=== PATIENT | female | born 1950 | race African-American/Black ===

== ENCOUNTER 2017-06-22 10:13 | Emergency (ER) | payer MEDICARE, MEDICAID ==
[~2017-06-22] VITALS: Ht 160 cm; Wt 91.0 kg
[~2017-06-22 10:13] MED LIST: ATOR10TA PO; CARI350T PO; GABA-533 PO; HYDR-519 PO; IBUP-2030 PO; TRAM50TA PO
[2017-06-22] MEDS ORDERED: HYDROCODONE/ACETAMINOPHEN 5/325MG TABLET PO ONE (11:15)
[2017-06-22 12:22] VITALS: BP 139/58
== END 2017-06-22 12:26 | disposition home or self-care (01) ==
LOC: ER 10:32
DX: M54.5 Low back pain (principal); G89.29 Other chronic pain; I10 Essential (primary) hypertension; E78.00 Pure hypercholesterolemia, unspecified; F17.200 Nicotine dependence, unspecified, uncomplicated
CPT/HCPCS: 99283

== ENCOUNTER 2021-06-23 12:03 | Emergency (ER) | payer MEDICARE, MEDICAID ==
[~2021-06-23] VITALS: Ht 165.1 cm; Wt 73.0 kg
[~2021-06-23 12:03] MED LIST changes: -CARI350T PO; +CARI350T28 PO
[2021-06-23] MEDS ORDERED: KETOROLAC 60MG/2ML VIAL IM ONE (13:00)
[2021-06-23] MEDS ORDERED: METHOCARBAMOL 500MG TABLET PO ONE (13:00)
[2021-06-23] MEDS ORDERED: LIDOCAINE 5% PATCH TOP SCH (13:00)
[2021-06-23] MEDS ORDERED: HYDROCODONE/ACETAMINOPHEN 10/325MG TABLET PO ONE (13:00)
[2021-06-23 13:50] VITALS: BP 135/64
[2021-06-23] MEDS ORDERED: LIDO1ADH23 TP (16:06)
[2021-06-23] MEDS ORDERED: IBUP-2028 MT (16:06)
[2021-06-23] MEDS ORDERED: METH-653 MT (16:08)
== END 2021-06-23 16:36 | disposition home or self-care (01) ==
LOC: ER 12:03
DX: M54.41 Lumbago with sciatica, right side (principal)
CPT/HCPCS: 93971; 96372; 99284; J1885

== ENCOUNTER 2023-12-03 12:24 | Inpatient (IN) | payer MEDICARE, MEDICAID ==
[~2023-12-03] VITALS: Ht 170.2 cm; Wt 77.1 kg
[~2023-12-03 12:24] MED LIST changes: +ALBU18HF2 IH; -GABA-533 PO; +GABA-534 PO; +IBUP-2028 MT; +IPRA3AMP9 HHN; +LEVO-65 MT; +LIDO1ADH23 TP; +METH-653 MT; +METH4TAB95 MT
[2023-12-03 13:00] LABS: BASOPHILS % 0.4 % (0.0-2.0); EOSINOPHILS % 4.8 % (0.0-5.0); HEMATOCRIT. 33.7 % (36.0-48.0); LYMPHOCYTES % 35.2 % (20.0-50.0); MEAN CORPUSCULAR HEMOGLOBIN 28.4 pg (28.0-32.0); MEAN CORPUSCULAR HGB CONC 32.5 g/dL (31.0-37.0); MEAN CORPUSCULAR VOLUME 87.3 fL (81.0-99.0); MEAN PLATELET VOLUME 7.9 fl (7.4-10.4); NEUTROPHILS % 53.6 % (40.0-76.0); PLATELET 251 x1000/uL (130-400); RED BLOOD CELL COUNT 3.86 mill/uL (4.2-5.4); RED CELL DISTRIBUTION WIDTH 17.3 % (11.6-14.6); WHITE BLOOD COUNT 10.6 x1000/uL (4.5-11.0)
[2023-12-03 13:09] LABS: CHLORIDE 102 mEq/L (98-107); POTASSIUM 3.3 mEq/L (3.5-5.1); SODIUM 141 mEq/L (136-145)
[2023-12-03 13:10] LABS: CALCIUM 9.5 mg/dL (8.7-10.4); CARBON DIOXIDE 34 mEq/L (21-32)
[2023-12-03 13:15] LABS: GLUCOSE 133 mg/dL (70-105); UREA NITROGEN BLOOD 16 mg/dL (9-23)
[2023-12-03 13:17] LABS: ALANINE AMINOTRANSFERASE 15 IU/L (10-49); ALBUMIN 4.5 g/dL (3.2-4.8); ASPARTATE AMINOTRANSFERASE 23 IU/L (<34); BILIRUBIN TOTAL 0.3 mg/dL (0.1-1.0); PROTEIN TOTAL 7.3 g/dL (6.0-8.3)
[2023-12-03 13:24] LABS: BILIRUBIN DIRECT < 0.1 mg/dL (<=3.0); TROPONIN I HIGH SENSITIVITY < 4 ng/L (3.0-34)
[2023-12-03] MEDS: POTASSIUM CHLORIDE 20MEQ/PACKET PO ONE (14:05)
[2023-12-03] MEDS: MORPHINE SULFATE 4 MG/ML INJ (FOR IV/IM USE) IV ONE (14:41)
[2023-12-03] MEDS ORDERED: ACETAMINOPHEN 325MG TABLET PO PRN (16:45)
[2023-12-03] MEDS ORDERED: GUAIFENESIN 200MG/10ML SUGAR FREE UDC PO PRN (16:45)
[2023-12-03] MEDS ORDERED: ONDANSETRON HCL 4MG/2ML INJ IV PRN (16:45)
[2023-12-03] MEDS ORDERED: HYDRALAZINE 20MG/ML VIAL IV PRN (16:45)
[2023-12-03] MEDS ORDERED: DEXTROSE 50% WATER 50ML SYRINGE IV PRN (16:45)
[2023-12-03] MEDS ORDERED: NALOXONE HCL 0.4MG/ML VIAL IV PRN (17:00)
[2023-12-03] MEDS: INSULIN LISPRO 100 UNITS/ML SUBCUT SCH (17:15)
[2023-12-03] MEDS: FUROSEMIDE 40MG/4ML VIAL IV SCH (17:40)
[2023-12-03] MEDS: BLOOD SUGAR DIAGNOSTIC STRIP TEST SCH (17:41)
[2023-12-03] MEDS: HYDROCODONE/ACETAMINOPHEN 5/325MG TABLET PO PRN (17:47)
[2023-12-03 18:18] LABS: IRON 71 ug/dL (50-170)
[2023-12-03 18:20] LABS: PHOSPHORUS 2.8 mg/dL (2.5-4.9)
[2023-12-03 18:21] LABS: TOTAL IRON BINDING CAPACITY 344 ug/dl (250-425)
[2023-12-03 18:31] LABS: FERRITIN 52 ng/mL (10-291); VITAMIN B12 SERUM 761 pg/mL (211-911)
[2023-12-03] MEDS: KETOROLAC 15MG/ML VIAL IV NR (20:59)
[2023-12-03] MEDS: CYCLOBENZAPRINE 10MG TABLET PO SCH (22:57)
[2023-12-04] VITALS (8 sets, daily range): BP systolic 100–133; BP diastolic 40–83; PULSE 61–86; RESP 16–20; TEMP 36.22512–36.78072; O2SAT 94–100
[2023-12-04 00:02] LABS: CREATINE KINASE MB FRACTION 4.1 ng/mL (0.5-3.6)
[2023-12-04 00:03] LABS: CREATINE KINASE 373 IU/L (34-145)
[2023-12-04 00:32] LABS: TROPONIN I HIGH SENSITIVITY < 4 ng/L (3.0-34)
[2023-12-04 06:04] LABS: BASOPHILS % 0.3 % (0.0-2.0); EOSINOPHILS % 5.5 % (0.0-5.0); HEMATOCRIT. 34.6 % (36.0-48.0); HEMOGLOBIN. 11.1 g/dL (12.0-16.0); LYMPHOCYTES % 34.6 % (20.0-50.0); MEAN CORPUSCULAR VOLUME 87.8 fL (81.0-99.0); MEAN PLATELET VOLUME 8.3 fl (7.4-10.4); MONOCYTES % 6.2 % (2.0-8.0); NEUTROPHILS % 53.4 % (40.0-76.0); PLATELET 248 x1000/uL (130-400); RED BLOOD CELL COUNT 3.95 mill/uL (4.2-5.4); RED CELL DISTRIBUTION WIDTH 17.1 % (11.6-14.6); WHITE BLOOD COUNT 10.3 x1000/uL (4.5-11.0)
[2023-12-04 06:08] LABS: CHLORIDE 101 mEq/L (98-107); POTASSIUM 3.7 mEq/L (3.5-5.1); SODIUM 141 mEq/L (136-145)
[2023-12-04 06:09] LABS: CARBON DIOXIDE 35 mEq/L (21-32)
[2023-12-04 06:10] LABS: CALCIUM 9.5 mg/dL (8.7-10.4)
[2023-12-04 06:12] LABS: CREATINE KINASE MB FRACTION 3.6 ng/mL (0.5-3.6); TROPONIN I HIGH SENSITIVITY 4 ng/L (3.0-34)
[2023-12-04 06:14] LABS: CREATINE KINASE 370 IU/L (34-145); GLUCOSE 107 mg/dL (70-105); UREA NITROGEN BLOOD 18 mg/dL (9-23)
[2023-12-04 06:18] LABS: THYROID STIMULATING HORMONE 1.42 uIU/mL (0.55-4.78)
[2023-12-04] MEDS: IPRATROPIUM/ALBUTEROL 0.5-3(2.5)MG/3ML NEB HHN PRN (16:29)
[2023-12-04 16:46] LABS: CREATINE KINASE MB FRACTION 4.2 ng/mL (0.5-3.6)
[2023-12-04 16:47] LABS: CREATINE KINASE 402 IU/L (34-145)
[2023-12-04 17:10] LABS: TROPONIN I HIGH SENSITIVITY < 4 ng/L (3.0-34)
[2023-12-04] MEDS: BUMETANIDE 1MG TABLET PO SCH (21:00)
[2023-12-04] MEDS: ATORVASTATIN CALCIUM 10MG TABLET PO SCH (23:31)
[2023-12-04] MEDS: ACETAMINOPHEN 325MG TABLET PO PRN (23:31)
[2023-12-05] VITALS: BP 106/40; PULSE 74; TEMP 36.72516; O2SAT 96
[2023-12-05 01:49] LABS: CREATINE KINASE 368 IU/L (34-145); CREATINE KINASE MB FRACTION 2.9 ng/mL (0.5-3.6)
[2023-12-05 01:53] LABS: TROPONIN I HIGH SENSITIVITY < 4 ng/L (3.0-34)
[2023-12-05 04:00] VITALS: BP 123/52; PULSE 65; RESP 20; TEMP 36.33624; O2SAT 95
[2023-12-05 08:00] VITALS: BP 133/69; PULSE 72; RESP 18; TEMP 36.3918; O2SAT 96
[2023-12-05 08:13] LABS: CREATINE KINASE MB FRACTION 2.5 ng/mL (0.5-3.6)
[2023-12-05 08:14] LABS: TROPONIN I HIGH SENSITIVITY 4 ng/L (3.0-34)
[2023-12-05 08:15] LABS: CREATINE KINASE 344 IU/L (34-145)
[2023-12-05] MEDS ORDERED: IPRATROPIUM/ALBUTEROL 0.5-3(2.5)MG/3ML NEB HHN PRN (09:00)
[2023-12-05] MEDS ORDERED: ENOXAPARIN 80MG/0.8ML SYR SUBCUT NR (10:15)
[2023-12-05] MEDS ORDERED: OXYC-582 PO (10:19)
[2023-12-05] MEDS ORDERED: OMEP40CA20 PO (10:19)
[2023-12-05] MEDS ORDERED: GABA-290 (10:19)
[2023-12-05] MEDS ORDERED: ACET325T52 PO (10:19)
[2023-12-05] MEDS ORDERED: FAMO20TA8 PO (10:19)
[2023-12-05] MEDS ORDERED: ALEN70TA79 PO (10:19)
[2023-12-05] MEDS ORDERED: ALBU18HF2 PO (10:19)
[2023-12-05] MEDS ORDERED: DICL100G58 TP (10:19)
[2023-12-05] MEDS ORDERED: CALC-26 PO (10:19)
[2023-12-05] MEDS ORDERED: FURO80TA3 PO (10:19)
[2023-12-05] MEDS ORDERED: BUME2TAB7 PO (10:19)
[2023-12-05] MEDS: ENOXAPARIN 40MG/0.4ML SYR SUBCUT SCH (10:37)
[2023-12-05 11:41] LABS: HEMOGLOBIN. 11.1 g/dL (12.0-16.0); MEAN CORPUSCULAR HEMOGLOBIN 28.6 pg (28.0-32.0); MEAN CORPUSCULAR HGB CONC 32.7 g/dL (31.0-37.0); MEAN CORPUSCULAR VOLUME 87.5 fL (81.0-99.0); PLATELET 254 x1000/uL (130-400); RED BLOOD CELL COUNT 3.89 mill/uL (4.2-5.4); RED CELL DISTRIBUTION WIDTH 17.5 % (11.6-14.6); WHITE BLOOD COUNT 8.9 x1000/uL (4.5-11.0)
[2023-12-05 11:42] LABS: DIFFERENTIAL COMMENT 1
[2023-12-05 11:48] LABS: INR 0.9; PROTHROMBIN TIME 10.3 sec (9.6-11.0)
[2023-12-05 11:52] LABS: CHLORIDE 101 mEq/L (98-107); POTASSIUM 3.5 mEq/L (3.5-5.1); SODIUM 141 mEq/L (136-145)
[2023-12-05 11:53] LABS: CALCIUM 9.6 mg/dL (8.7-10.4); CARBON DIOXIDE 34 mEq/L (21-32)
[2023-12-05 11:58] LABS: CREATININE 0.8 mg/dL (0.6-1.0); GLUCOSE 129 mg/dL (70-105); UREA NITROGEN BLOOD 14 mg/dL (9-23)
[2023-12-05 12:00] VITALS: BP 117/58; PULSE 68; RESP 18; TEMP 36.114; O2SAT 68
[2023-12-05 12:39] LABS: ANISOCYTOSIS 1+; PLATELET ESTIMATE NORMAL
[2023-12-05 16:00] VITALS: BP 119/46; PULSE 73; RESP 18; TEMP 36.55848; O2SAT 73
[2023-12-05 20:00] VITALS: BP 123/45; PULSE 85; RESP 18; TEMP 36.28068; O2SAT 98
[2023-12-06] VITALS: BP 111/39; PULSE 75; RESP 19; TEMP 36.3918; O2SAT 99
[2023-12-06 04:00] VITALS: BP 106/47; PULSE 80; RESP 18; TEMP 36.3918; O2SAT 98
[2023-12-06 06:42] LABS: CALCIUM 9.2 mg/dL (8.7-10.4); CHLORIDE 102 mEq/L (98-107); POTASSIUM 3.6 mEq/L (3.5-5.1); SODIUM 139 mEq/L (136-145)
[2023-12-06 06:43] LABS: CARBON DIOXIDE 32 mEq/L (21-32)
[2023-12-06 06:48] LABS: CREATININE 0.9 mg/dL (0.6-1.0); GLUCOSE 99 mg/dL (70-105)
[2023-12-06 06:49] LABS: UREA NITROGEN BLOOD 15 mg/dL (9-23)
[2023-12-06 06:51] LABS: PHOSPHORUS 3.5 mg/dL (2.5-4.9)
[2023-12-06 08:00] VITALS: BP_SYST 122; BP_SYST 126; BP_DIAS 41; BP_DIAS 62; PULSE 69; PULSE 82; RESP 18; TEMP 36.72516; TEMP 36.78072; O2SAT 97
[2023-12-06 08:01] LABS: BASOPHILS % 0.4 % (0.0-2.0); EOSINOPHILS % 4.5 % (0.0-5.0); HEMATOCRIT. 32.1 % (36.0-48.0); HEMOGLOBIN. 10.4 g/dL (12.0-16.0); LYMPHOCYTES % 43.5 % (20.0-50.0); MEAN CORPUSCULAR HEMOGLOBIN 28.3 pg (28.0-32.0); MEAN CORPUSCULAR HGB CONC 32.3 g/dL (31.0-37.0); MEAN CORPUSCULAR VOLUME 87.7 fL (81.0-99.0); MEAN PLATELET VOLUME 8.8 fl (7.4-10.4); MONOCYTES % 6.1 % (2.0-8.0); NEUTROPHILS % 45.5 % (40.0-76.0); PLATELET 256 x1000/uL (130-400); RED BLOOD CELL COUNT 3.66 mill/uL (4.2-5.4); RED CELL DISTRIBUTION WIDTH 17.1 % (11.6-14.6); WHITE BLOOD COUNT 8.8 x1000/uL (4.5-11.0)
[2023-12-06] MEDS: GABAPENTIN 100MG CAPSULE PO SCH (09:07)
[2023-12-06 12:00] VITALS: BP 129/63; PULSE 77; RESP 18; TEMP 36.3918; O2SAT 95
[2023-12-06 15:58] LABS: FOLIC ACID (FOLATE) SERUM 11.89 ng/mL (>5.38)
[2023-12-06 16:00] VITALS: BP 113/59; PULSE 77; RESP 18; TEMP 36.78072; O2SAT 97
[2023-12-06 20:00] VITALS: BP 112/57; PULSE 75; RESP 20; TEMP 36.3918; O2SAT 96
[2023-12-07] VITALS: BP 119/60; PULSE 71; RESP 20; TEMP 36.44736; O2SAT 96
[2023-12-07 04:00] VITALS: BP 104/50; PULSE 67; RESP 18; TEMP 36.50292; O2SAT 97
[2023-12-07 05:46] LABS: CARBON DIOXIDE 35 mEq/L (21-32); CHLORIDE 100 mEq/L (98-107); POTASSIUM 3.7 mEq/L (3.5-5.1); SODIUM 139 mEq/L (136-145)
[2023-12-07 05:47] LABS: CALCIUM 9.9 mg/dL (8.7-10.4)
[2023-12-07 05:53] LABS: GLUCOSE 104 mg/dL (70-105); UREA NITROGEN BLOOD 19 mg/dL (9-23)
[2023-12-07 06:29] LABS: HEMATOCRIT 35.1 % (36.0-48.0); HEMOGLOBIN 11.4 g/dL (12.0-16.0); MEAN CORPUSCULAR HEMOGLOBIN 28.7 pg (28.0-32.0); MEAN CORPUSCULAR HGB CONC 32.5 g/dL (31.0-37.0); MEAN CORPUSCULAR VOLUME 88.1 fL (81.0-99.0); PLATELET 263 x1000/uL (130-400); RED BLOOD CELL COUNT 3.98 mill/uL (4.2-5.4); WHITE BLOOD COUNT 8.7 x1000/uL (4.5-11.0)
[2023-12-07 08:00] VITALS: BP 115/34; PULSE 63; RESP 18; TEMP 36.28068; O2SAT 97
[2023-12-07 12:00] VITALS: BP 102/53; PULSE 68; RESP 18; TEMP 36.61404; O2SAT 95
[2023-12-07 16:00] VITALS: BP 111/65; PULSE 86; RESP 18; TEMP 36.22512; O2SAT 96
[2023-12-07 20:00] VITALS: BP 112/83; PULSE 93; RESP 18; TEMP 36.72516; O2SAT 99
[2023-12-08] VITALS: BP 120/58; PULSE 74; RESP 18; TEMP 36.55848; O2SAT 100
[2023-12-08 04:00] VITALS: BP 117/61; PULSE 79; RESP 17; TEMP 36.50292; O2SAT 98
[2023-12-08 06:32] LABS: HEMATOCRIT 34.2 % (36.0-48.0); HEMOGLOBIN 11.4 g/dL (12.0-16.0); MEAN CORPUSCULAR HEMOGLOBIN 29.2 pg (28.0-32.0); MEAN CORPUSCULAR HGB CONC 33.4 g/dL (31.0-37.0); MEAN CORPUSCULAR VOLUME 87.5 fL (81.0-99.0); PLATELET 265 x1000/uL (130-400); RED BLOOD CELL COUNT 3.91 mill/uL (4.2-5.4); RED CELL DISTRIBUTION WIDTH 17.2 % (11.6-14.6); WHITE BLOOD COUNT 10.5 x1000/uL (4.5-11.0)
[2023-12-08 06:39] LABS: CHLORIDE 100 mEq/L (98-107); POTASSIUM 3.6 mEq/L (3.5-5.1); SODIUM 138 mEq/L (136-145)
[2023-12-08 06:40] LABS: CARBON DIOXIDE 33 mEq/L (21-32)
[2023-12-08 06:45] LABS: GLUCOSE 106 mg/dL (70-105)
[2023-12-08 06:46] LABS: UREA NITROGEN BLOOD 24 mg/dL (9-23)
[2023-12-08 08:00] VITALS: BP 120/64; PULSE 66; RESP 18; TEMP 36.50292; O2SAT 96
[2023-12-08] MEDS ORDERED: ATOR10TA69 MT (11:21)
[2023-12-08 11:57] VITALS: BP 120/64; PULSE 66; TEMP 97.7; O2SAT 96
== END 2023-12-08 12:40 | disposition home or self-care (01) | DRG 351 ==
LOC: ER 12:24 → 5WST 14:34 → EDBEDREQ 14:36 → EDBEDREQTM 14:36 → 7EST 12-04 03:07
PROVIDERS: ADMIT Internal Medicine; ATTEND Internal Medicine
DX: M79.89 Other specified soft tissue disorders (principal); D64.9 Anemia, unspecified; E87.6 Hypokalemia; E78.5 Hyperlipidemia, unspecified; G89.4 Chronic pain syndrome; M54.50 Low back pain, unspecified; J45.909 Unspecified asthma, uncomplicated; F41.9 Anxiety disorder, unspecified; R73.9 Hyperglycemia, unspecified
CPT/HCPCS: 36415; 71045; 80048; 80061; 80076; 82550; 82553; 82607; 82728; 82746; 82962; 83036; 83540; 83550; 83735; 83880; 84100; 84443; 84484; 85025; 85027; 85379; 93005; 93306; 93970; 94640; 97162; 99291; J1650; J1885; J1940; J2270